=== PATIENT | female | born 1945 | race Caucasian/White ===

== ENCOUNTER 2022-09-22 00:02 | Emergency (ER) | payer MEDICARE, OTHER ==
[~2022-09-22] VITALS: Ht 160 cm; Wt 110.0 kg
[2022-09-22] MEDS ORDERED: EPINEPHrine HCL 1 MG/10 ML SYRG IV ONE (00:03)
[2022-09-22] MEDS ORDERED: CALCIUM CHLOR(10%) 100MG/ML 10ML SYRINGE IV ONE (00:03)
[2022-09-22] MEDS ORDERED: LIDOCAINE HCL 100 MG/5ML (2%) SYRG INJ IV ONE (00:03)
[2022-09-22] MEDS ORDERED: MAGNESIUM SULF 50% 40 MEQ/10 ML VL IV ONE (00:03)
[2022-09-22] MEDS ORDERED: SODIUM BICARBONATE 8.4% INJ 50ML SYRINGE IV ONE (00:03)
[2022-09-22] MEDS ORDERED: AMIODARONE HCL (50 MG/ ML) 3 ML VIAL IV ONE ×2 (00:03→00:47)
[2022-09-22] MEDS ORDERED: ALBUTEROL SULF 2.5 MG/0.5ML(0.5%) NEB SOLN ONE (00:11)
[2022-09-22] MEDS ORDERED: MIDAZOLAM HCL 10 ML IV ONE (00:12)
[2022-09-22] MEDS ORDERED: MIDAZOLAM DRIP 50 mg/50mL 50 ML IV ONE (00:13)
[2022-09-22] MEDS ORDERED: MIDAZOLAM DRIP 50 mg/50mL 50 ML IV SCH (00:15)
[2022-09-22] MEDS ORDERED: LACTATED RINGER'S 1,000 ML IV ONE (00:15)
[2022-09-22] MEDS ORDERED: SUCCINYLCHOLINE CHLORIDE 20 MG/ML 10ML VIAL IV ONE (00:15)
[2022-09-22] MEDS ORDERED: AZITHROMYCIN 500MG/ 250ML 250 ML IV ONE (00:15)
[2022-09-22] MEDS ORDERED: KETAMINE 50mg/ML 10ml Vial (500mg/10ml) IV ONE (00:15)
[2022-09-22] MEDS ORDERED: IPRATROPIUM BROM 0.5 MG/2.5ML INH SOL HHN ONE (00:15)
[2022-09-22] MEDS ORDERED: methylPREDNISolone SOD SUCC 125 MG/2 ML VL IV ONE (00:15)
[2022-09-22] MEDS ORDERED: ALBUTEROL SULF 2.5 MG/0.5ML(0.5%) NEB SOLN HHN ONE (00:15)
[2022-09-22] MEDS ORDERED: fentaNYL Drip 2500mCg/250mlNS 250 ML IV ONE (00:28)
[2022-09-22] MEDS ORDERED: fentaNYL Drip 2500mCg/250mlNS 250 ML IV SCH (00:30)
[2022-09-22 00:33] LABS: Basophils # (auto) 0.1 10 ^3/uL (0-0.2); Basophils % (auto) 0.8 % (0.0-2.0); Eosinophils # (auto) 0.2 10 ^3/uL (0-0.8); Eosinophils % (auto) 1.5 % (0.0-7.0); Hemoglobin 13.7 g/dL (12.2-16.2); Lymphocytes # (auto) 2.4 10 ^3/uL (0.4-5.4); Lymphocytes % (auto) 20.3 % (10.0-50.0); Mean Corpuscular Hemoglobin 29.3 pg (28.0-32.0); Mean Corpuscular Hgb Conc. 31.2 g/dL (32.0-36.0); Mean Corpuscular Volume 93.8 fL (80.0-100.0); Monocytes # (auto) 0.4 10 ^3/uL (0-1.3); Monocytes % (auto) 3.7 % (0.0-12.0); Neutrophils # (auto) 8.6 10 ^3/uL (1.6-8.6); Neutrophils % (auto) 73.7 % (37.0-80.0); Nucleated Red Blood Cells % 0.1 %; Red Blood Cells 4.69 10^6/uL (4.0-5.20); Red Cell Distribution Width 14.5 % (11.8-14.3); White Blood Cell 11.6 10^3/uL (4.4-10.8)
[2022-09-22] MEDS ORDERED: ROCURONIUM 10MG/ML 10ML VIAL IV ONE ×2 (00:45→01:15)
[2022-09-22] MEDS ORDERED: SODIUM BICARBONATE 8.4% INJ 50ML SYRINGE ONE (00:48)
[2022-09-22 00:55] LABS: Albumin 3.1 g/dL (3.4-5.0); BUN/Creatinine Ratio 10.1; Calcium 8.8 mg/dL (8.5-10.1); Magnesium 2.5 mg/dL (1.6-2.6); Potassium 4.5 mmol/L (3.5-5.1)
[2022-09-22 00:57] LABS: Bilirubin, Total 0.3 mg/dL (0.2-1.0); Total Protein 6.9 g/dL (6.4-8.2)
[2022-09-22] MEDS: MAGNESIUM SULFATE 1GM/100ML 100 ML IV SCH ×2 (01:00→02:00)
[2022-09-22] MEDS ORDERED: ALBUTEROL SULF 2.5 MG/0.5ML(0.5%) NEB SOLN NEB ONE (01:15)
== END 2022-09-22 00:58 ==
LOC: ER 00:02
DX: R06.03 Acute respiratory distress (principal); I46.8 Cardiac arrest due to other underlying condition; R00.0 Tachycardia, unspecified; J44.1 Chronic obstructive pulmonary disease with (acute) exacerbation; R06.02 Shortness of breath
CPT/HCPCS: 31500; 36415; 36600; 71045; 80053; 82805; 83735; 83880; 84484; 85025; 87070; 87077; 87186; 87205; 92950; 94640; 99291; J0171; J0282; J2250; J3475; 94002; 96374; 96375